=== PATIENT | male | born 1935 | race Caucasian/White ===

== ENCOUNTER 2017-02-22 16:06 | Emergency (ER) | payer MEDICARE ==
[~2017-02-22] VITALS: Ht 182.8 cm; Wt 68.0 kg
[~2017-02-22 16:06] MED LIST: ASPIRIN ADULT L81 M1 PO; CEFUROXIME250 MG PO; CLOPIDOGREL75 MG PO; FAMOTIDINE20 M1 PO; GOOD NEIGHBOR P20 MG PO; ISOSORBIDE DINI30 MG PO; LEVAQUIN750 M1 PO; MULTIVITAMIN1 TAB PO; NORVASC5 MG PO; PREDNISONE10 MG PO; ROBITUSSIN5 ML PO; SPIRIVA18 MCG PO; SYMBICORT1 AE1 INH; ZOCOR20 MG PO
[2017-02-22] MEDS ORDERED: CYCLOBENZAPRINE5 M3 PO (17:29)
== END 2017-02-22 17:37 | disposition home or self-care (01) ==
LOC: ED 16:06
DX: S16.1XXA Strain of muscle, fascia and tendon at neck level, initial encounter (principal); S09.90XA Unspecified injury of head, initial encounter; Z79.82 Long term (current) use of aspirin; Z79.899 Other long term (current) drug therapy; X58.XXXA Exposure to other specified factors, initial encounter; Y93.89 Activity, other specified; Y92.89 Other specified places as the place of occurrence of the external cause; Y99.8 Other external cause status

== ENCOUNTER → 2017-08-17 | Outpatient (CLI) | payer MEDICARE ==
[~2017-08-17] MED LIST changes: +CYCLOBENZAPRINE5 M3 PO
== END | disposition home or self-care (01) ==
LOC: US 15:19
DX: R60.0 Localized edema (principal)

== ENCOUNTER 2020-07-16 20:19 | Emergency (ER) | payer MEDICARE ==
[~2020-07-16] VITALS: Ht 182.8 cm; Wt 68.0 kg
[2020-07-16] MEDS ORDERED: CEPHALEXIN500 M1 PO (23:19)
--- NOTE | 2020-07-17 | NUR ---
pt instructed on IS. 1250 achieved
== END 2020-07-16 23:44 | disposition home or self-care (01) ==
LOC: ED 20:19
DX: S22.31XA Fracture of one rib, right side, initial encounter for closed fracture (principal); Z79.82 Long term (current) use of aspirin; Z79.899 Other long term (current) drug therapy; X58.XXXA Exposure to other specified factors, initial encounter; Y93.89 Activity, other specified; Y92.89 Other specified places as the place of occurrence of the external cause; Y99.8 Other external cause status

== ENCOUNTER → 2020-12-24 | Outpatient (CLI) | payer OTHER ==
[~2020-12-24] MED LIST changes: +CEPHALEXIN500 M1 PO
== END | disposition home or self-care (01) ==
LOC: CARD 12-09 09:30
PROVIDERS: ATTEND Nurse Practitioner Family
DX: I35.8 Other nonrheumatic aortic valve disorders (principal); I51.7 Cardiomegaly

== ENCOUNTER → 2021-12-22 | Outpatient (CLI) | payer OTHER | END | disposition home or self-care (01) | LOC: CT 13:00 | PROVIDERS: ATTEND Nurse Practitioner Family | DX: K57.30 Diverticulosis of large intestine without perforation or abscess without bleeding (principal); R91.1 Solitary pulmonary nodule; I25.10 Atherosclerotic heart disease of native coronary artery without angina pectoris; N26.1 Atrophy of kidney (terminal); N20.0 Calculus of kidney ==